=== PATIENT | female | born 1945 | race Caucasian/White ===

== ENCOUNTER 2017-05-10 04:28 | Inpatient (IN) | payer SELFPAY ==
[~2017-05-10] VITALS: Ht 157.5 cm; Wt 65.8 kg
[2017-05-10] MEDS ORDERED: SODIUM CHLORIDE 0.9% 1,000 ML IV SCH (04:44)
[2017-05-10] MEDS ORDERED: EPINEPHRINE 1:1000 1 MG/ML AMP IM ONE (04:45)
[2017-05-10] MEDS ORDERED: METHYLPREDNISOLONE SOD SUCC 125 MG/2 ML VIAL IV ONE (04:45)
[2017-05-10] MEDS ORDERED: DIPHENHYDRAMINE 50MG/ML VIAL IV ONE (04:45)
[2017-05-10] MEDS ORDERED: FAMOTIDINE 20MG/2ML VIAL IV ONE (04:45)
[2017-05-10 05:10] LABS: BASOPHILS % 0.4 % (0.0-2.0); EOSINOPHILS % 2.3 % (0.0-5.0); HEMATOCRIT. 38.5 % (36.0-48.0); HEMOGLOBIN. 13.2 g/dL (12.0-16.0); LYMPHOCYTES % 28.1 % (20.0-50.0); MEAN CORPUSCULAR HEMOGLOBIN 30.6 pg (28.0-32.0); MEAN CORPUSCULAR VOLUME 89.5 fL (81.0-99.0); MEAN PLATELET VOLUME 7.1 fl (7.4-10.4); MONOCYTES % 10.1 % (2.0-8.0); NEUTROPHILS % 59.1 % (40.0-76.0); PLATELET 286 x1000/uL (130-400); RED CELL DISTRIBUTION WIDTH 14.3 % (11.6-14.6)
[2017-05-10 06:43] LABS: CHLORIDE 108 mEq/L (98-107)
[2017-05-10 07:08] LABS: CARBON DIOXIDE 20 mEq/L (21-32)
[2017-05-10 08:40] VITALS: BP 145/69
[2017-05-10 09:07] VITALS: BP 123/71
[2017-05-10 10:00] VITALS: BP 136/75
[2017-05-10] MEDS ORDERED: ACETAMINOPHEN 325MG TABLET PO PRN (10:30)
[2017-05-10 11:00] VITALS: BP 128/68
[2017-05-10 11:58] VITALS: BP 132/70
[2017-05-10] MEDS ORDERED: [UNRECOGNIZED DRUG - OTHER] PO (12:07)
[2017-05-10] MEDS ORDERED: ROSU10TA PO (12:07)
[2017-05-10 12:11] VITALS: BP 132/71
== END 2017-05-10 12:35 | disposition home or self-care (01) | DRG 811 ==
LOC: ER 04:28 → 3WST 05:25 → EDBEDREQ 05:26 → ENRESERV 05:33
PROVIDERS: ADMIT Internal Medicine; ATTEND Internal Medicine
PROC: 30233L1 Transfusion of Nonautologous Fresh Plasma into Peripheral Vein, Percutaneous Approach (ICD-10-PCS; principal; 2017-05-10)
PROC: 30233K1 Transfusion of Nonautologous Frozen Plasma into Peripheral Vein, Percutaneous Approach (ICD-10-PCS; 2017-05-10)
DX: T78.3XXA Angioneurotic edema, initial encounter (principal); I10 Essential (primary) hypertension; E78.00 Pure hypercholesterolemia, unspecified; G43.909 Migraine, unspecified, not intractable, without status migrainosus; Z90.710 Acquired absence of both cervix and uterus; Z79.82 Long term (current) use of aspirin
CPT/HCPCS: 36415; 71010; 80053; 85025; 85610; 86850; 86900; 86927; 93005; 96361; 96374; 96375; 99291; J0171; J1200; J2930; J3490; J7030; J7040; P9017